=== PATIENT | male | born 2000 | race Caucasian/White ===

== ENCOUNTER 2018-10-08 22:57 | Emergency (ER) | payer MEDICAID ==
[~2018-10-08] VITALS: Ht 172.7 cm; Wt 101.2 kg
[2018-10-09] MEDS ORDERED: IBUPROFEN 600MG TABLET PO SCH (00:18)
[2018-10-09 01:37] VITALS: BP 138/89
== END 2018-10-09 01:39 | disposition home or self-care (01) ==
LOC: ER 22:57
DX: J06.9 Acute upper respiratory infection, unspecified (principal); G44.89 Other headache syndrome
CPT/HCPCS: 87070; 87430; 87804; 99283